=== PATIENT | female | born 1950 | race Caucasian/White ===

== ENCOUNTER → 2018-01-03 | Day surgery (SDC) | payer OTHER ==
--- NOTE | 2018-01-02 12:49 | Pre Op History & Physical ---
DATE OF SERVICE: January 03, 2018 CHIEF COMPLAINT: Spasmodic dysphonia. 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 The patient has a few Botox injections with improvement of her condition. The last injection was in July of 2017, was doing well until the medication has worn off. The patient has a total of 2 injections before, one was in January of 2017 and then one in July of 2017. REVIEW OF SYSTEMS: Showed no recent cardiovascular, respiratory, or GI problem. PAST MEDICAL HISTORY: Patient has no significant medical problem. PAST SURGICAL HISTORY: The patient had previous tonsillectomy, hysterectomy, cataract excision in both eyes, Botox injection in January of 2017 and July of 2017. ALLERGIES: She has no known allergy to medication. MEDICATIONS: She is on aspirin and Benadryl. SOCIAL HISTORY: She smokes about a pack a day and is a few beer a day drinker. FAMILY HISTORY: Noncontributory. PHYSICAL EXAMINATION VITAL SIGNS: Within normal limits. GENERAL: The patient speaks with the typical spasmodic voice. EAR: Normal tympanic membranes bilaterally. NASAL: No obvious abnormality. THROAT: Oropharynx and oral cavity show no obvious abnormality. NECK: No lymph node or thyroid palpable. CHEST: Good air entry bilaterally. CARDIOVASCULAR: S1 and S2. No murmur noted. BUILDING DRAFTER: Cranial nerves II through XII were within normal limits. IMPRESSION AND PLAN: Ms. Sanchez has spasmodic dysphonia, which has been resistant to conservative therapy. Suggested treatment is panendoscopy, microlaryngoscopy, and Botox injection to both vocal folds and other necessary procedures. The complications of procedure include, but not limited to bleeding, infection, perforation of esophagus, pneumomediastinum, mediastinitis, airway compromise, and persistent recurrence of the problem. The alternative would be continued observation and Botox injection in the office setting. The patient has elected to undergo the surgical procedure. Job#: [id number] VAS
[~2018-01-03] MED LIST: ASPIRIN325 MG PO; BENADRYL25 M1 PO; BOTULINUM TOXIN TYPE A 100 UNIT VIAL IM ONE; DEXAMETHASONE SOD PHOS INJ 4 MG/ML VIAL ONE; EPHEDRINE SULFATE INJ 50 MG/10 ML SYR ONE; FENTANYL CITRATE/PF 100MCG/2 ML INJ ONE; GLYCOPYRROLATE INJ 1MG/ 5 ML SYR ONE; LIDOCAINE HCL 2% LOCAL 20 ML VIAL ONE; LIDOCAINE HCL 2% LOCAL INJ 5 ML SDV VIAL INJ ONE; MIDAZOLAM HCL 2 MG/2 ML VIAL ONE; NEOSTIGMINE 5 MG/5ML SYR ONE; ONDANSETRON HCL INJ 2 MG/ML VIAL ONE; OXYMETAZOLINE HCL 0.05% NAS 1 SPRAY BTL ONE; PROPOFOL IV EMULSION 10 MG/ML 20 ML VIAL ONE; ROCURONIUM BROMIDE 10 MG/ML 5ML VIAL ONE; SEVOFLURANE INHAL SOLN 250 ML PEN BTL ONE
--- NOTE | 2018-01-03 10:08 | Diagnostic Imaging Report ---
PROCEDURE:CHEST 2 VIEWS TECHNIQUE:PA and lateral chest INDICATION:Preoperative evaluation COMPARISON:None. FINDINGS: The lungs are clear and symmetrically inflated. No pleural effusions. Normal heart size, mediastinal contour, and pulmonary vasculature. Intact skeleton. CONCLUSION: Normal chest. Dictated by: Anthony New M.D. on 01/03/2018 at 10:10 Electronically approved by: Anthony New M.D. on 01/03/2018 at 10:10
--- NOTE | 2018-01-03 13:14 | Operative Report ---
DATE OF PROCEDURE: January 03, 2018 CHIEF COMPLAINT: Spasmodic dysphonia. POSTOPERATIVE DIAGNOSIS: Spasmodic dysphonia. TITLE OF PROCEDURE: Laryngoscopy, rigid esophagoscopy, rigid bronchoscopy, micro laryngoscopy and bilateral Botox injection of the vocal folds. ANESTHESIA: Anesthesiology Group. INDICATIONS: This 67-year-old female has history of spasmodic dysphonia. The patient has been doing well on Botox injection. The last injection was July 2017. The patient's voice is starting to give out. It was decided that a panendoscopy, microlaryngoscopy and Botox injection of both vocal folds will be beneficial for her. Patient was taken to the operating room, put under general anesthesia and endotracheally intubated. The patient was positioned. Rigid esophagoscopy was performed. Esophagoscope was passed to about 25 cm from the incisor. No abnormality was noted. Esophagoscope was retrieved. The rigid bronchoscopy was performed. A size 4 bronchoscope with Thurman tri was used. Bronchoscope was passed parallel to the endotracheal tube. Endotracheal tube cuff was deflated, trachea was examined down to the jorge. No abnormality was noted. The bronchoscope was retrieved and endotracheal cuff was re-inflated. The direct laryngoscopy was performed. The Dedo laryngoscope was used. The oropharynx and oral cavity was examined, no abnormality was noted. The larynx was examined both the true and false vocal folds were examined, no abnormality was noted. The laryngoscope was put on suspension and operating microscope was brought in. Each vocal folds in the larynx were re-examined, no other abnormality was noted. With the premixed Botox, 6 units were injected in each vocal fold bilaterally. To both the left and right vocal folds individually. The patient tolerated the above procedure well with minimal blood loss. The patient, at the end of procedure, was noted to have one loose left incisor tooth which was not out. This was informed to the patient afterwards. The patient was able to be transferred to recovery room in stable condition. She was given 20 mg of Decadron intraoperatively. Job#: [id number]
== END | disposition home or self-care (01) ==
LOC: OR 09:00
PROVIDERS: ATTEND Otolaryngology Otolaryngology/Facial Plastic Surgery
DX: J38.3 Other diseases of vocal cords (principal); F17.210 Nicotine dependence, cigarettes, uncomplicated; Z79.82 Long term (current) use of aspirin
CPT/HCPCS: 31571; 31622; 43191; 71046; 93005; J0587; J1100; J2001 ×2; J2250; J2405